=== PATIENT | female | born 1985 | race American Indian/Alaskan Native ===

== ENCOUNTER 2019-06-14 15:27 | Emergency (ER) | payer MEDICAID ==
--- NOTE | 2019-06-14 15:45 | Event Note ---
ED Screening Note ED Screening Note: lmp 04/09 did not go to ob vag spotting since last pm cramp This initial assessment/diagnostic orders/clinical plan/treatment(s) is/are subject to change based on patients health status, clinical progression and re- assessment by fellow clinical providers in the ED. Further treatment and workup at subsequent clinical providers discretion. Patient/guardian urged not to elope from the ED as their condition may be serious if not clinically assessed and managed. Initial orders include: labs/ua/us
[2019-06-14 16:25] LABS: Hematocrit 32.5 % (30.3-42.9); Hemoglobin 11.1 gm/dl (10.1-14.3); Mean Corpuscular HGB Conc 34 % (30-34); Mean Corpuscular Volume 96 fl (79-97); Platelet Count 194 K/mm3 (140-440); Red Blood Count 3.39 M/mm3 (3.65-5.03); Red Cell Distribution Width 11.7 % (13.2-15.2)
[2019-06-14 16:41] LABS: Bilirubin,Urine NEG (Negative); Blood,Urine NEG (Negative); Color,Urine Straw (Yellow); Mucus,Urine FEW /HPF; Protein,Urine <15 mg/dL mg/dL (Negative); RBC,Urine < 1.0 /HPF (0.0-6.0); Urobilinogen,Urine < 2.0 mg/dL (<2.0); WBC,Urine < 1.0 /HPF (0.0-6.0)
[2019-06-14 16:47] LABS: BUN/Creatinine Ratio 8; Blood Urea Nitrogen 5 mg/dL (7-17); Hemolysis Index 6
[2019-06-14 17:30] LABS: Stomatocytes Few; Total Cells Counted 100
[2019-06-14 17:32] LABS: Anisocytosis Few; Platelet Estimate Consistent w Auto
--- NOTE | 2019-06-14 18:16 | Emergency Department Report ---
HPI - General Chief Complaint: Vaginal Bleeding Time Seen by Provider: 06/14/19 15:43 - HPI HPI: 33-year-old female presents to the emergency department with complaint of some vaginal bleeding while . The bleeding started off heavily last night and then became more of a spotting throughout today. It is associated with some mild abdominal and/or pelvic cramping. The patient says that her last menstrual cycle was 04/12/19. She had a positive home test recently. 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 With this she is . No past medical history. She has not taken anything for her symptoms prior to arrival today. ED Past Medical Hx - Past Medical History Previous Medical History?: No - Surgical History Past Surgical History?: No - Social History Smoking Status: Never Smoker Substance Use Type: None - Medications Home Medications: Home Medications Medication Instructions Recorded Confirmed Last Taken Type Vit-Fe Fumar-FA [ 1 tab PO QDAY #30 tablet 06/14/19 Unknown Rx Vitamin] ED Review of Systems ROS: Stated complaint: /BLEEDING Other details as noted in HPI Comment: All other systems reviewed and negative Constitutional: denies: chills, fever Respiratory: denies: shortness of breath Cardiovascular: denies: chest pain Gastrointestinal: denies: abdominal pain Genitourinary: other (vaginal bleeding, pelvic cramping). denies: dysuria, discharge Skin: denies: rash, lesions Neurological: denies: headache, weakness Physical Exam - Physical Exam Vital Signs: Vital Signs 06/14/19 17:13 Respiratory 15 Rate Physical Exam: GENERAL: The patient is well-developed well-nourished. HEENT: Normocephalic. Atraumatic. Patient has moist mucous membranes. EYES: Extraocular motions are intact. NECK: Supple. Trachea is midline. CHEST/LUNGS: Clear to auscultation. There is no respiratory distress noted. HEART/CARDIOVASCULAR: Regular. There is no tachycardia. ABDOMEN: Abdomen is soft, nontender. Patient has normal bowel sounds. There is no abdominal distention. SKIN:Skin is warm and dry. . NEURO: The patient is awake, alert, and oriented. The patient is cooperative. The patient has no focal neurologic deficits. Normal speech. MUSCULOSKELETAL: There is no tenderness or deformity. There is no evidence of acute injury. ED Course Vital Signs 06/14/19 17:13 Respiratory 15 Rate ED Medical Decision Making - Lab Data Result diagrams: 06/14/19 16:07 06/14/19 16:07 - Radiology Data Radiology results: report reviewed ULTRASOUND OBSTETRIC INDICATION / CLINICAL INFORMATION: VAG BLEED IN PREG. TECHNIQUE: Transabdominal. COMPARISON: None available. FINDINGS: GESTATIONAL SAC: Well-defined oval shape and intrauterine in location. YOLK SAC: No significant abnormality. EMBRYO/FETUS: No significant abnormality. - [place]-Rump Length = 2.4 cm = 9 weeks, 1 day(s). - Heart Rate, beats per minute (if present) = 174 ADNEXA: No significant abnormality. FREE FLUID: None. ADDITIONAL FINDINGS: None. IMPRESSION: 1. Single, living intrauterine with estimated sonographic age of 9 weeks, 1 day(s). Signer Name: Raz Cunningham MD - Medical Decision Making This patient presents to the emergency department with some mild pelvic cramping and mild vaginal bleeding while . Labs are mostly unremarkable. She is Rh+. Ultrasound shows a live intrauterine at 9 weeks. Vital signs stable throughout her ED course. She'll be discharged home to follow up with her [employer]ING [employer] and instructed to return to the ER with any worsening of her symptoms or with any acute distress. She understands and agrees to the plan. - Differential Diagnosis , threatened miscarriage, spontaneous miscarriage, fibroids Critical Care Time: No Critical care attestation.: If time is entered above; I have spent that time in minutes in the direct care of this critically ill patient, excluding procedure time. ED Disposition Clinical Impression: Threatened miscarriage Qualifiers: Weeks of gestation: 9 weeks Qualified Code(s): Z3A.09 - 9 weeks gestation of Disposition: DC-01 TO HOME OR SELFCARE Is pt being admited?: No Condition: Stable Instructions: Threatened Miscarriage (ED), (ED) Additional Instructions: Please follow up with your PHOTOENGRAVING PROOFER in the next few days. Return to the emergency Department with any worsening of your symptoms, including any increased bleeding or increased pelvic pains, or with any acute distress. Prescriptions: Vit-Fe Fumar-FA [ Vitamin] 1 tab PO QDAY #30 tablet Referrals: OBGYN, Your [Other] - 3-5 Days Forms: Work/School Release Form(ED) Time of Disposition: 19:31
[2019-06-14 19:11] VITALS: BP 110/52
--- NOTE | 2019-06-14 19:27 | Ultrasound Report ---
ULTRASOUND OBSTETRIC INDICATION / CLINICAL INFORMATION: VAG BLEED IN PREG. TECHNIQUE: Transabdominal. COMPARISON: None available. FINDINGS: GESTATIONAL SAC: Well-defined oval shape and intrauterine in location. YOLK SAC: No significant abnormality. EMBRYO/FETUS: No significant abnormality. - [place]-Rump Length = 2.4 cm = 9 weeks, 1 day(s). - Heart Rate, beats per minute (if present) = 174 ADNEXA: No significant abnormality. FREE FLUID: None. ADDITIONAL FINDINGS: None. IMPRESSION: 1. Single, living intrauterine with estimated sonographic age of 9 weeks, 1 day(s). Signer Name: Raz Cunningham MD Signed: 06/14/2019 7:22 PM Workstation Name: [email or web address]
== END 2019-06-14 19:50 | disposition home or self-care (01) ==
LOC: ED 15:27
DX: O20.0 Threatened abortion (principal); Z3A.01 Less than 8 weeks gestation of pregnancy; Z88.1 Allergy status to other antibiotic agents
CPT/HCPCS: 36415; 76801; 80048; 81001; 84702; 85007; 85025; 86900; 86901